=== PATIENT | male | born 1950 | race Caucasian/White ===

== ENCOUNTER → 2017-09-19 | Outpatient (CLI) | payer OTHER ==
--- NOTE | 2017-09-19 12:04 | RAD ---
INDICATION: Ataxia, dizziness, gait instability. TECHNIQUE: Sagittal T1, axial T1, axial T2, axial FLAIR, axial T2 gradient, coronal T2, and diffusion imaging with ADC map was performed. No comparison is available. FINDINGS: There is symmetric prominence of the ventricles and sulci. Scattered FLAIR hyperintensities in the supratentorial white matter and in the mahsa are not specific but most suggestive of mild to moderate small vessel ischemic disease. There is no acute intracranial hemorrhage or extra-axial fluid collection. There is no mass effect or midline shift. There is no restricted diffusion to suggest an acute infarct. Sagittal midline structures are unremarkable. Pituitary and suprasellar region are unremarkable. Intracranial flow voids are preserved. There is pansinus mucosal thickening, mild. Mastoid air cells are clear. IMPRESSION: 1. Brain parenchymal volume loss and mild to moderate probable small vessel ischemic disease. 2. No acute intracranial findings. Electronically signed by: Francis Poon MD (09/19/2017 11:59 AM) [id number]
--- NOTE | 2017-09-19 12:05 | RAD ---
Indication: Ataxia, dizziness, gait instability. Technique: Study is dated September 19, 2017. 3-D time of flight MRA of the [place] was performed without contrast. Source and MIP reconstructed images were reviewed. There are no comparison studies available. Findings: The visualized internal carotid arteries are normal in caliber without focal stenosis. The bilateral anterior and middle cerebral arteries are normal in caliber without focal stenosis or aneurysm. The vertebral, basilar, and posterior cerebral arteries are normal in caliber without focal stenosis or aneurysm. Impression: Normal intracranial MRA. Electronically signed by: Francis Poon MD (09/19/2017 12:02 PM) [id number]
== END | disposition home or self-care (01) ==
LOC: MRI 10:15
DX: R42 Dizziness and giddiness (principal)
CPT/HCPCS: 70544; 70551